=== PATIENT | female | born 1950 | race African-American/Black ===

== ENCOUNTER 2016-07-02 15:39 | Emergency (ER) | payer OTHER ==
[~2016-07-02] VITALS: Ht 170.2 cm; Wt 100.0 kg
[~2016-07-02 15:39] MED LIST: ALBU1AER INH; APIX5TAB PO; BUPR1TAB70 PO; CARV12.52 PO; ENDO7.5T10 PO; FLUT50I INH; FURO20 PO; HYOS0.1251 PO; LOSA25 PO; LOVA20TA PO; MELO15 PO; NITR0.4S SL; OMEP20TA PO; ONDA4 PO; PACE200T4 PO; POTA-243 PO; REST30CA PO; SYMB80AE INH; ULTR50TA PO
[2016-07-02 15:42] VITALS: BP 146/87; PULSE 78; RESP 20; TEMP 98.2; O2SAT 98
[2016-07-02 16:00] VITALS: RESP 20; O2SAT 98
[2016-07-02] MEDS ORDERED: SODIUM CHLORIDE 0.9% FLUSH 5 ML FLUSH IVF PRN (16:00)
--- NOTE | 2016-07-02 16:02 | PD ---
HPI Chief Complaint: Pain: Acute or Chronic Time Seen by Provider: 15:53 Travel History International Travel<30 days: No Contact w/Intl Traveler<30days: No Traveled to known affect area: No History of Present Illness HPI 66-year-old female here with complaint of right leg swelling. Patient states that she broke her foot approximately 3 months ago. Patient has history of venous stasis and takes Lasix for this daily. She has been compliant with this , as well as her Xarelto for her atrial fibrillation. Over the course the last week the swelling in the bilateral lower extremity has been increasing, particularly in her right foot. She was seen by her PCP today, who sent her here given concerns for possible blood clots. Patient denies a history of DVT and again has been compliant with her Xarelto. PFSH Past Medical History Hx Anticoagulant Therapy: Yes (ELIQUIS) Arthritis: Yes Asthma: No Anxiety: Yes Depression: Yes Heart Rhythm Problems: Yes (AFIB) Cancer: No Cardiovascular Problems: Yes (A-FIB) High Cholesterol: Yes Chest Pain: No Congestive Heart Failure: Yes COPD: Yes Cerebrovascular Accident: No Diabetes: No Diminished Hearing: No Endocrine: No GERD: Yes Genitourinary: No Hiatal Hernia: No Immune Disorder: No Musculoskeletal: Yes Neurologic: Yes Psychiatric: Yes Reproductive: No Respiratory: Yes Migraines: No Seizures: Yes Sleep Apnea: No Thyroid Disease: No Ulcer: No : 3 Para: 3 Ovarian Cysts: Yes Tubal Ligation: Yes Past Surgical History AICD: No Arteriovenous Shunt: No Gynecologic Surgery: Yes Hysterectomy: Yes Insulin Pump: No Joint Replacement: No Pacemaker: No Thoracic Surgery: Yes (LUMPECTOMY) Other Surgery: Yes (fibroid removal) Social History Alcohol Use: No Tobacco Use: No Substance Use: No Allergies-Medications (Allergen,Severity, Reaction): Coded Allergies: Kennedy (Verified Allergy, Severe, HALLUCINAATIONS, 06/28/15) Reported Meds & Prescriptions Reported Meds & Active Scripts Active Reported Ultram (Tramadol HCl) 50 Mg Tab 50 Mg PO BID PRN Restoril 30 mg (Temazepam) 30 Mg Cap 1 Cap PO HS Zofran 4 Mg Tab (Ondansetron Hcl) 4 Mg Tab 4 Mg PO Q8 PRN Omeprazole 20 mg (Omeprazole) 20 Mg Tab 1 Tab PO BID Nitrostat (Nitroglycerin) 0.4 Mg Subl 0.4 Mg SL PRN 1 TAB SL EVERY 5 MINS X 3 PRN CHEST PAIN Mobic 15 Mg Tab (Meloxicam) 15 Mg Tab 15 Mg PO DAILY Lovastatin 20 Mg Tab 20 Mg PO HS Hyoscyamine Sulfate 0.125 Mg/Ml Jorge 0.125 Mg PO Q6H PRN Fluticasone Propionate 50 Mcg/Act Spr 50 Mcg INH BID Bupropion Hcl Er (Bupropion Hcl) 100 Mg Tab 100 Mg PO BID Symbicort (Budesonide/Formoterol Fumarate) 80 Mcg/4.5 Mcg Aer 2 Puff INH BID * SHAKE WELL BEFORE USE * Proair Hfa (Albuterol Sulfate) 8.5 Gm Aero 2 Puff INH Q4H PRN * SHAKE WELL BEFORE USE * K-Dur (Potassium Chloride) 10 Meq Tabcr 20 Meq PO BID Losartan Potassium 25 MG (Losartan Potassium) 25 Mg Tab 25 Mg PO DAILY Lasix 20 Mg Tab (Furosemide) 20 Mg Tab 20 Mg PO BID Carvedilol 12.5 mg (Carvedilol) 12.5 Mg Tab 1 Tab PO BID Eliquis (Apixaban) 5 Mg Tab 5 Mg PO BID Pacerone 200 mg (Amiodarone HCl) 200 Mg Tab 2 Tab PO BID Endocet 7.5/325 (Oxycodone/Acetaminophen) Tab 1 Tab PO Q4-6H PRN Review of Systems Except as stated in HPI: all other systems reviewed are Neg Physical Exam Narrative GENERAL:well-appearing female in no acute distress SKIN: Warm and dry. HEAD:Normocephalic. EYES: No scleral icterus. No injection or drainage. ENT: Mucous membranes pink and moist. NECK: Tsupple CARDIOVASCULAR: Regular rate and rhythm. RESPIRATORY: No accessory muscle use. GASTROINTESTINAL: Abdomen soft, non-tender, nondistended. MUSCULOSKELETAL: bilateral lower extremity swelling right slightly greater than left. Tenderness to palpation over the first and second metatarsal ray on the foot, chronic for patient.no palpable cords. Good distal pulses. Ambulatory to obtain at baseline. NEUROLOGICAL: Awake and alert. Normal speech. PSYCHIATRIC: Appropriate mood and affect; insight and judgment normal. Data Data Last Documented VS Vital Signs Date Time Temp Pulse Resp B/P Pulse Ox O2 Delivery O2 Flow Rate FiO2 07/02/16 16:00 20 98 Room Air 07/02/16 15:54 78 07/02/16 15:42 98.2 146/87 Orders Basic Metabolic Panel (Bmp) (07/02/16 15:58) Complete Blood Count With Diff (07/02/16 15:58) Iv Access Insert/Monitor (07/02/16 15:58) Ecg Monitoring (07/02/16 15:58) Oximetry (07/02/16 15:58) Sodium Chloride 0.9% Flush (Ns Flush) (07/02/16 16:00) Us Leg Venous Doppler (07/02/16 ) Tramadol (Ultram) (07/02/16 16:15) Labs Laboratory Tests Test 07/02/16 16:15 White Blood Count 5.1 TH/MM3 Red Blood Count 3.88 MIL/MM3 Hemoglobin 11.2 GM/DL Hematocrit 34.5 % Mean Corpuscular Volume 88.8 FL Mean Corpuscular Hemoglobin 28.7 PG Mean Corpuscular Hemoglobin 32.3 % Concent Red Cell Distribution Width 15.9 % Platelet Count 176 TH/MM3 Mean Platelet Volume 9.2 FL Neutrophils (%) (Auto) 38.5 % Lymphocytes (%) (Auto) 48.9 % Monocytes (%) (Auto) 10.9 % Eosinophils (%) (Auto) 0.9 % Basophils (%) (Auto) 0.8 % Neutrophils # (Auto) 2.0 TH/MM3 Lymphocytes # (Auto) 2.5 TH/MM3 Monocytes # (Auto) 0.6 TH/MM3 Eosinophils # (Auto) 0.0 TH/MM3 Basophils # (Auto) 0.0 TH/MM3 CBC Comment DIFF FINAL Differential Comment Sodium Level 141 MEQ/L Potassium Level 4.3 MEQ/L Chloride Level 109 MEQ/L Carbon Dioxide Level 26.1 MEQ/L Anion Gap 6 MEQ/L Blood Urea Nitrogen 12 MG/DL Creatinine 0.81 MG/DL Estimat Glomerular Filtration 86 ML/MIN Rate Random Glucose 75 MG/DL Calcium Level 9.0 MG/DL [facility] Medical Decision Making Medical Screen Exam Complete: Yes Emergency Medical Condition: Yes Medical Record Reviewed: Yes Differential Diagnosis 66-year-old female here with bilateral lower extremity swelling for the last several days to week, right greater than left. Differential includes venous stasis, DVT, medication nonadherence. No evidence of cellulitis clinically. Narrative Course CBC, BMP unremarkable. Duplex ultrasound of the right lower, a negative for DVT. We will increase her Lasix from 20 mg twice a day to 40 mg twice a day and recommend that she follow-up with PCP as an outpatient next week. Diagnosis Primary Impression: Lower extremity edema Qualified Code: R60.0 - Bilateral edema of lower extremity Referrals: Primary Care Physician 3 days Additional Instructions: Increase your home Lasix from 20 mg twice a day to 40 mg twice a day. Follow- up with primary care provider early next week if edema does not improve. Blood work and ultrasound today were normal without evidence of blood clot. Med/Other Pt SpecificInfo: Existing Med Changed Scripts Furosemide (Lasix)40 Mg Tab40 Mg PO BID #60 TAB Ref 0 Prov:Melisa Henriquez MD 07/02/16 Disposition: 01 DISCHARGE HOME Condition: Stable Melisa Henriquez MD Jul 02, 2016 16:02
[2016-07-02] MEDS ORDERED: traMADol HCL 50 MG TAB PO ONE (16:15)
[2016-07-02 16:54] LABS: BASOPHIL % 0.8 % (0.0-2.0); EOSINOPHIL % 0.9 % (0.0-4.0); HEMATOCRIT 34.5 % (35.0-46.0); HEMO FLAGS DIFF FINAL; LYMPH % 48.9 % (9.0-44.0); LYMPHOCYTE # 2.5 TH/MM3 (1.0-4.8); MEAN CELL VOLUME 88.8 FL (80.0-100.0); MEAN CORPUSCULAR HEMOGLOBIN 28.7 PG (27.0-34.0); MEAN CORPUSCULAR HGB CONC 32.3 % (32.0-36.0); MONO % 10.9 % (0.0-8.0); NEUT % 38.5 % (16.0-70.0); PLATELET COUNT 176 TH/MM3 (150-450); RED BLOOD COUNT 3.88 MIL/MM3 (4.00-5.30); RED CELL DISTRIBUTION WIDTH 15.9 % (11.6-17.2); WHITE BLOOD COUNT 5.1 TH/MM3 (4.0-11.0)
[2016-07-02 17:08] LABS: BICARBONATE 26.1 MEQ/L (21.0-32.0); POTASSIUM 4.3 MEQ/L (3.5-5.1)
--- NOTE | 2016-07-02 17:19 | RADRPT ---
EXAM DATE/TIME: 07/02/2016 16:34 [facility] COMPARISON: No previous studies available for comparison. INDICATIONS : Right leg swelling. MEDICAL HISTORY : Chronic obstructive pulmonary disease. Congestive heart failure. Hypertension. Seizures. Afib. Ant icoagulant therapy. Gastroesophageal reflux disease. Ovarian cysts. . Arthritis. Fatty liver disease. Depression. Anxiety. SURGICAL HISTORY : Tubal ligation. Hysterectomy. Chest lumpectomy. Fibroid removal. ENCOUNTER: Initial ACUITY: 1 day PAIN SCORE: 2/10 LOCATION: Right leg. TECHNIQUE: Venous ultrasound of the leg was performed from the inguinal ligament to the proximal calf. Real-radha e, color Doppler and spectral tracing, compression and augmentation techniques were used. FINDINGS: There is normal compressibility of the deep venous system from the inguinal region to the proximal ca lf. No echogenic clot is seen in the lumen of the common femoral, femoral, popliteal, and posterior tibial veins. There is a normal response of the venous system to proximal and distal augmentation an d respiration. CONCLUSION: No evidence of deep vein thrombosis within the right lower extremity. Keegan Arenas MD on July 02, 2016 at 17:17 Board Certified Radiologist. This report was verified electronically.
[2016-07-02] MEDS ORDERED: FURO1TAB60 PO (17:23)
[2016-07-02] MEDS ORDERED: NORC5TAB PO (17:28)
== END 2016-07-02 18:05 | disposition home or self-care (01) ==
LOC: NEPE 15:39
DX: R60.0 Localized edema (principal); I87.8 Other specified disorders of veins; I48.91 Unspecified atrial fibrillation; J44.9 Chronic obstructive pulmonary disease, unspecified; I50.9 Heart failure, unspecified; Z79.01 Long term (current) use of anticoagulants
CPT/HCPCS: 80048; 85025; 93971